=== PATIENT | female | born 1945 | race Caucasian/White ===

== ENCOUNTER 2019-05-14 11:59 | Emergency (ER) | payer OTHER ==
[2019-05-14 12:55] LABS: Absolute Lymphocytes (CBC) 1.5 K/uL (0.7-4.9); Basophils % 1.2 % (0-1.3); Hematocrit 39.3 % (36.0-45.0); Lymphocytes % 27.3 % (15.3-44.8); MPV 10.5 fL (7.6-11.3); RBC Red Blood Cell Count 4.41 M/uL (3.86-4.86)
[2019-05-14 12:56] LABS: Protime INR 0.93
[2019-05-14 13:09] LABS: ALT/SGPT 66 U/L (12-78); AST/SGOT 39 U/L (15-37); Albumin 3.7 g/dL (3.4-5.0); Alkaline Phosphatase 65 U/L (45-117); BUN Blood Urea Nitrogen 15 mg/dL (7-18); Bicarbonate 30 mmol/L (21-32); Bilirubin Direct 0.2 mg/dL (0-0.2); Bilirubin Total 0.7 mg/dL (0.2-1.0); Glucose Level 120 mg/dL (74-106); NT PRO-BNP 219 pg/mL (<125); Potassium 4.1 mmol/L (3.5-5.1); Protein, Total 6.7 g/dL (6.4-8.2); Sodium Level 141 mmol/L (136-145); Troponin (Emerg Dept Use Only) < 0.02 ng/mL (0.0-0.045)
[2019-05-14 13:48] LABS: Urine Blood NEGATIVE (NEG); Urine Glucose NEGATIVE (NEG); Urine Protein NEGATIVE (NEG)
--- NOTE | 2019-05-14 13:51 | RAD REPORT ---
EXAM DESCRIPTION: Elizabeth Single View05/14/2019 1:03 pm CLINICAL HISTORY: Chest pain COMPARISON: 2018 FINDINGS: The lungs appear clear of acute infiltrate. The heart is normal size IMPRESSION: No acute abnormalities displayed
--- NOTE | 2019-05-14 14:03 | ER ---
[facility] Name: Chrissy Johnson Age: 73 yrs Sex: Female : 1945 Arrival Date: 05/14/2019 Time: 12:01 Bed 17 Private MD: Hero Baxter C Diagnosis: Essential (primary) hypertension Presentation: 05/14 12:11 Presenting complaint: Patient states: "Last night during the night I woke up with a aj1 fluttering feeling in my chest and an uncomfortable feeling. It probably lasted 20 or 30 minutes. I took my blood pressure and it was 205/[id number]-[id number]. It came down over the night but never lower than 145." Denies CP, palpitations at this time.. Denies SOB. Transition of care: patient was not received from another setting of care. Onset of symptoms was 2018. Risk Assessment: Do you want to hurt yourself or someone else? Patient reports no desire to harm self or others. Initial Sepsis Screen: Does the patient meet any 2 criteria? No. Patient's initial sepsis screen is negative. Does the patient have a suspected source of infection? No. Patient's initial sepsis screen is negative. Care prior to arrival: None. 12:11 Method Of Arrival: Ambulatory aj1 12:11 Acuity: TAMI 3 aj1 Triage Assessment: 12:19 General: Appears in no apparent distress. comfortable, Behavior is calm, cooperative, aj1 appropriate for age. Pain: Denies pain. Neuro: Level of Consciousness is awake, alert, obeys commands. Cardiovascular: Reports palpitations, Patient's skin is warm and dry. Respiratory: Airway is patent Respiratory effort is even, unlabored, Respiratory pattern is regular, symmetrical. Historical: - Allergies: 12:19 Darvon; aj1 12:19 Atarax; aj1 12:19 Amoxicillin; aj1 12:19 novahistin; aj1 - Home Meds: 12:19 Crestor 10 mg oral tab 1 tab once daily [Active]; amlodipine-hydrochlorothiazide aj1 [Active]; levothyroxine 75 mcg tab 1 tab once daily [Active]; metformin 500 mg Oral Tb24 1 tab once daily [Active]; Benadryl Oral once daily [Active]; aspirin 81 mg Oral chew 1 tab once daily [Active]; Vitamin D Oral 400 unit daily [Active]; Fish Oil oral oral daily [Active]; Calcium Carbonate Oral daily [Active]; Thera Tears Nutrition [phone] ry-xe-ig-unit oral cap twice a day [Active]; biotin 5,000 mcg oral cap twice a day [Active]; CoQ-10 100 mg oral cap daily [Active]; sulfurzyme [Active]; - PMHx: 12:19 mortons neuroma; Hypertension; Diabetes - NIDDM; Hyperlipidemia; melanoma- removed x2; aj1 - PSHx: 12:19 Appendectomy; Tonsillectomy; shoulder repair; Thyroidectomy; Knee surgery; aj1 - Immunization history:: Flu vaccine is up to date. - Social history:: Smoking status: Patient/guardian denies using tobacco, Patient/guardian denies using alcohol, street drugs, The patient lives with family. - Ebola Screening: : Patient denies travel to an Ebola-affected area in the 21 days before illness onset. - Family history:: not pertinent. Screenin:19 Abuse screen: Denies threats or abuse. Denies injuries from another. Nutritional sg screening: No deficits noted. Tuberculosis screening: No symptoms or risk factors identified. Never had TB. Fall Risk None identified. Assessment: 12:18 General: Appears in no apparent distress. well groomed, well developed, well nourished, sg Behavior is calm, cooperative, appropriate for age. Pain: Denies pain. Neuro: Level of Consciousness is awake, alert, obeys commands, Oriented to person, place, time, Double Cut Off Saw Operator are equal bilaterally Moves all extremities. Full function Speech is normal, Facial symmetry appears normal, Pupils are PERRLA. Cardiovascular: Capillary refill < 3 seconds Patient's skin is warm and dry. Chest pain is denied. Cardiovascular: Heart tones S1 S2 present. Respiratory: Airway is patent Respiratory effort is even, unlabored, Respiratory pattern is regular, symmetrical. GI: Abdomen is round non-distended. : No signs and/or symptoms were reported regarding the genitourinary system. EENT: No signs and/or symptoms were reported regarding the EENT system. Derm: Skin is pink, warm \\T\\ dry. Musculoskeletal: Circulation, motion, and sensation intact. Range of motion: intact in all extremities. 13:19 Reassessment: Patient appears in no apparent distress at this time. Patient and/or sg family updated on plan of care and expected duration. Pain level reassessed. Patient is alert, oriented x 3, equal unlabored respirations, skin warm/dry/pink. Vital Signs: 12:19 BP 173 / 75; Pulse 69; Resp 18; Temp 98.1; Pulse Ox 97% on R/A; Weight 88.9 kg (R); aj1 Height 5 ft. 4 in. (162.56 cm) (R); Pain 0/10; 13:21 BP 142 / 70; Pulse 58; Resp 14; Pulse Ox 100% on R/A; sg 12:19 Body Mass Index 33.64 (88.90 kg, 162.56 cm) aj1 ED Course: 12:00 Initial lab(s) drawn, by me, sent to lab. Inserted saline lock: 22 gauge in right sg antecubital area, using aseptic technique. Blood collected. 12:01 Patient arrived in ED. mr 12:02 Hero Baxter MD is Private Physician. mr 12:13 Triage completed. aj1 12:19 Arm band placed on Patient placed in an exam room. aj1 12:20 Silvino Laws, RN is Primary Nurse. 12:24 Maliha Gutierrez MD is Attending Physician. ma2 12:30 Patient has correct armband on for positive identification. Placed in gown. Bed in low hb position. Call light in reach. Side rails up X 1. babysitter on. Pulse ox on. NIBP on. 13:04 XRAY Chest (1 view) In Process Unspecified. EDMS 14:11 No provider procedures requiring assistance completed. IV discontinued, intact, hb bleeding controlled, No redness/swelling at site. Pressure dressing applied. Administered Medications: No medications were administered Outcome: 14:02 Discharge ordered by . ma2 14:11 Discharged to home ambulatory, with family. hb 14:11 Condition: stable 14:11 Discharge instructions given to patient, family, Instructed on discharge instructions, follow up and referral plans. Demonstrated understanding of instructions, follow-up care. 14:11 Patient left the ED. hb Signatures: Dispatcher [employer] EDNV Jennifer Montana RN RN aj Silvino Laws RN RN Kimmy Mejia mr Rosa Weber RN RN Alzahri, Mohammad, MD MD ma2
--- NOTE | 2019-05-14 14:05 | EDPHYS ---
Physician Documentation [facility] Name: Chrissy Johnson Age: 73 yrs Sex: Female : 1945 Arrival Date: 05/14/2019 Time: 12:01 Bed 17 Private MD: Hero Baxter C ED Physician Maliha Gutierrez HPI: 05/14 14:00 This 73 yrs old Female presents to ER via Ambulatory with complaints of High ma2 Blood Pressure. 14:00 The patient has elevated blood pressure and discovered this at home. Onset: The ma2 symptoms/episode began/occurred gradually, 2 day(s) ago. Severity of symptoms: At its worst the blood pressure was mild, in the emergency department the blood pressure is now normal. The blood pressure problem is resolved. The patient has not experienced similar symptoms in the past. Historical: - Allergies: 12: Darvon; aj1 12:19 Atarax; aj1 12:19 Amoxicillin; aj1 12:19 novahistin; aj1 - Home Meds: 12: Crestor 10 mg oral tab 1 tab once daily [Active]; amlodipine-hydrochlorothiazide aj1 [Active]; levothyroxine 75 mcg tab 1 tab once daily [Active]; metformin 500 mg Oral Tb24 1 tab once daily [Active]; Benadryl Oral once daily [Active]; aspirin 81 mg Oral chew 1 tab once daily [Active]; Vitamin D Oral 400 unit daily [Active]; Fish Oil oral oral daily [Active]; Calcium Carbonate Oral daily [Active]; Thera Tears Nutrition [phone] id-os-zj-unit oral cap twice a day [Active]; biotin 5,000 mcg oral cap twice a day [Active]; CoQ-10 100 mg oral cap daily [Active]; sulfurzyme [Active]; - PMHx: 12:19 mortons neuroma; Hypertension; Diabetes - NIDDM; Hyperlipidemia; melanoma- removed x2; aj1 - PSHx: 12:19 Appendectomy; Tonsillectomy; shoulder repair; Thyroidectomy; Knee surgery; aj1 - Immunization history:: Flu vaccine is up to date. - Social history:: Smoking status: Patient/guardian denies using tobacco, Patient/guardian denies using alcohol, street drugs, The patient lives with family. - Ebola Screening: : Patient denies travel to an Ebola-affected area in the 21 days before illness onset. - Family history:: not pertinent. ROS: 14:00 Constitutional: Negative for fever, chills, and weight loss. ma2 14:00 All other systems are negative. Exam: 14:00 Constitutional: This is a well developed, well nourished patient who is awake, alert, ma2 and in no acute distress. Head/Face: Normocephalic, atraumatic. Eyes: Pupils equal round and reactive to light, extra-ocular motions intact. Lids and lashes normal. Conjunctiva and sclera are non-icteric and not injected. Cornea within normal limits. Periorbital areas with no swelling, redness, or edema. ENT: Nares patent. No nasal discharge, no septal abnormalities noted. Tympanic membranes are normal and external auditory canals are clear. Oropharynx with no redness, swelling, or masses, exudates, or evidence of obstruction, uvula midline. Mucous membranes moist. Neck: Trachea midline, no thyromegaly or masses palpated, and no cervical lymphadenopathy. Supple, full range of motion without nuchal rigidity, or vertebral point tenderness. No Meningismus. Chest/axilla: Normal chest wall appearance and motion. Nontender with no deformity. No lesions are appreciated. Cardiovascular: Regular rate and rhythm with a normal S1 and S2. No gallops, murmurs, or rubs. Normal PMI, no JVD. No pulse deficits. Respiratory: Lungs have equal breath sounds bilaterally, clear to auscultation and percussion. No rales, rhonchi or wheezes noted. No increased work of breathing, no retractions or nasal flaring. Abdomen/GI: Soft, non-tender, with normal bowel sounds. No distension or tympany. No guarding or rebound. No evidence of tenderness throughout. Skin: Warm, dry with normal turgor. Normal color with no rashes, no lesions, and no evidence of cellulitis. MS/ Extremity: Pulses equal, no cyanosis. Neurovascular intact. Full, normal range of motion. Neuro: Awake and alert, GCS 15, oriented to person, place, time, and situation. Cranial nerves II-XII grossly intact. Motor strength 5/5 in all extremities. Sensory grossly intact. Cerebellar exam normal. Normal gait. Vital Signs: 12:19 BP 173 / 75; Pulse 69; Resp 18; Temp 98.1; Pulse Ox 97% on R/A; Weight 88.9 kg (R); aj1 Height 5 ft. 4 in. (162.56 cm) (R); Pain 0/10; 13:21 BP 142 / 70; Pulse 58; Resp 14; Pulse Ox 100% on R/A; sg 12:19 Body Mass Index 33.64 (88.90 kg, 162.56 cm) aj1 MDM: 12:24 Patient medically screened. ma2 14:00 Differential diagnosis: asymptomatic HTN, no chest pain, no acs, dd includes ma2 electrolytes abnormality vs headache. Data reviewed: vital signs, nurses notes. Counseling: I had a detailed discussion with the patient and/or guardian regarding: the historical points, exam findings, and any diagnostic results supporting the discharge/admit diagnosis, the presence of at least one elevated blood pressure reading (>120/80) during this emergency department visit, the need for outpatient follow up. Response to treatment: the patient's symptoms have resolved after treatment. 05/14 12:25 Order name: Basic Metabolic Panel [facility] 05/14 12:25 Order name: CBC with Diff; Complete Time: 13:50 ma2 05/14 12:25 Order name: LFT's; Complete Time: 13:50 ma2 05/14 12:25 Order name: Magnesium; Complete Time: 13:50 ma2 05/14 12:25 Order name: NT PRO-BNP; Complete Time: 13:50 ma2 05/14 12:25 Order name: PT-INR; Complete Time: 13:50 ma2 05/14 12:25 Order name: Troponin (emerg Dept Use Only); Complete Time: 13:50 ma2 05/14 12:25 Order name: XRAY Chest (1 view) [facility] 05/14 12:25 Order name: EKG; Complete Time: 12:26 ma2 05/14 12:25 Order name: Cardiac monitoring; Complete Time: 12:41 ma2 05/14 12:25 Order name: EKG - Nurse/Tech; Complete Time: 12:41 ma2 05/14 12:25 Order name: IV Saline Lock; Complete Time: 12:42 ma2 05/14 12:25 Order name: Basic Metabolic Panel; Complete Time: 13:50 EDMS 05/14 12:53 Order name: Urine Dipstick--Ancillary (enter results); Complete Time: 13:50 eb 05/14 12:25 Order name: Labs collected and sent; Complete Time: 12:42 ma2 05/14 12:25 Order name: O2 Per Protocol; Complete Time: 12:41 ma2 05/14 12:25 Order name: O2 Sat Monitoring; Complete Time: 12:41 ma2 Administered Medications: No medications were administered Disposition: 05/14/19 14:02 Discharged to Home. Impression: Essential (primary) hypertension. - Condition is Stable. - Discharge Instructions: Hypertension, Managing Your Hypertension. - Medication Reconciliation Form, Thank You Letter, Antibiotic Education, Prescription Opioid Use form. - Follow up: Private Physician; When: Tomorrow; Reason: Continuance of care. Signatures: Dispatcher [employer] Jennifer Suresh RN RN aj1 Rosa Weber RN RN Maliha Gutierrez MD MD ma2 Corrections: (The following items were deleted from the chart) 14:11 14:02 05/14/2019 14:02 Discharged to Home. Impression: Essential (primary) hb hypertension. Condition is Stable. Forms are Medication Reconciliation Form, Thank You Letter, Antibiotic Education, Prescription Opioid Use. Follow up: Private Physician; When: Tomorrow; Reason: Continuance of care. ma2
--- NOTE | 2019-05-14 15:31 | EKG ---
Test Date: 2019-05-14 Test Time: 12:34:48 Mold Maker Plaster: SWG MEASUREMENT RESULTS: Intervals: Rate: 57 OH: 144 QRSD: 120 QT: 450 QTc: 438 [place]: P: 19 OH: 144 QRS: -3 T: 3 INTERPRETIVE STATEMENTS: Sinus bradycardia Right bundle branch block Abnormal ECG Compared to ECG 07/23/2010 13:37:18 Sinus rhythm no longer present Electronically Signed On 05-14-19 15:30:35 MATERIAL DISPATCHER by Sherwin Jimenez
[2019-05-14 18:21] VITALS: TEMP 98.1
[2019-05-14 18:22] VITALS: BP 142/70; O2SAT 100
== END 2019-05-14 14:11 | disposition home or self-care (01) ==
LOC: ER 11:59
DX: I10 Essential (primary) hypertension (principal); Z88.1 Allergy status to other antibiotic agents; Z88.8 Allergy status to other drugs, medicaments and biological substances; E11.9 Type 2 diabetes mellitus without complications; E78.5 Hyperlipidemia, unspecified
CPT/HCPCS: 36415; 71045; 80048; 80076; 81003; 83735; 83880; 84484; 85025; 85610; 93005; 99284

== ENCOUNTER 2021-03-07 13:19 | Emergency (ER) | payer OTHER ==
[2021-03-07 14:06] LABS: Urine Blood Negative (Negative); Urine Glucose Negative (Negative); Urine Protein Negative (Negative); Urine pH 5.5 (5.0-7.0)
[2021-03-07 14:17] LABS: Absolute Lymphocytes (CBC) 1.8 K/uL (0.7-4.9); Basophils % 1.2 % (0-1.3); Hematocrit 41.4 % (36.0-45.0); MPV 9.2 fL (7.6-11.3)
[2021-03-07] MEDS ORDERED: NA CHLORIDE 0.9% 1,000 ML ONE (14:20)
[2021-03-07 14:25] LABS: Protime INR 0.97
[2021-03-07 14:35] LABS: ALT/SGPT 57 U/L (12-78); AST/SGOT 46 U/L (15-37); Albumin 4.4 g/dL (3.4-5.0); Alkaline Phosphatase 68 U/L (45-117); BUN Blood Urea Nitrogen 25 mg/dL (7-18); Bicarbonate 31 mmol/L (21-32); Bilirubin Direct 0.3 mg/dL (0-0.2); Bilirubin Total 1.2 mg/dL (0.2-1.0); Glucose Level 121 mg/dL (74-106); NT PRO-BNP 104 pg/mL (<125); Potassium 3.7 mmol/L (3.5-5.1); Protein, Total 8.1 g/dL (6.4-8.2); Sodium Level 141 mmol/L (136-145); Troponin (Emerg Dept Use Only) < 0.02 ng/mL (0.0-0.045)
--- NOTE | 2021-03-07 15:03 | RAD REPORT ---
EXAM DESCRIPTION: RAD - Chest Single View - 03/07/2021 2:36 pm CLINICAL HISTORY: Cough;Palpitations Chest pain. COMPARISON: Chest Single View dated 05/14/2019; Chest Pa And Lat (2 Views) dated 06/03/2017; CHEST SI NGLE VIEW dated 07/23/2010; CHEST SINGLE VIEW dated 07/22/2010 FINDINGS: Portable technique limits examination quality. The lungs are grossly clear. The heart is upper limit of normal in size. No displaced fractures.
--- NOTE | 2021-03-07 15:48 | ER ---
Nurse's Notes [facility] Name: Chrissy Johnson Age: 75 yrs Sex: Female : 1945 Arrival Date: 03/07/2021 Time: 13:22 Bed 23 Private MD: Hero Baxter C Diagnosis: Palpitations;Essential (primary) hypertension;UTI/ Urinary tract infection, site not specified;Atrial premature depolarization Presentation: 03/07 13:35 Chief complaint: Patient states: she has been feeling "flutters" in her chest for about ap3 a year off and on. However, patient states today it has happened twice, with light headed and dizziness. Coronavirus screen: At this time, the client does not indicate any symptoms associated with coronavirus-19. Ebola Screen: No symptoms or risks identified at this time. Initial Sepsis Screen: Does the patient meet any 2 criteria? No. Patient's initial sepsis screen is negative. Does the patient have a suspected source of infection? No. Patient's initial sepsis screen is negative. Risk Assessment: Do you want to hurt yourself or someone else? Patient reports no desire to harm self or others. Onset of symptoms was March 07, 2021. 13:35 Method Of Arrival: Ambulatory ap3 13:35 Acuity: TAMI 3 ap3 Triage Assessment: 13:41 General: Appears in no apparent distress. comfortable, Behavior is calm, cooperative, ap3 appropriate for age. Pain: Denies pain. Neuro: Level of Consciousness is awake, alert, obeys commands. 13:41 Cardiovascular: Reports palpitations, dizziness when she feels the heart flutters. ap3 Historical: - Allergies: 14:12 Amoxicillin; ld1 14:12 Atarax; ld1 14:12 Darvon; ld1 14:12 novahistin; ld1 - Home Meds: 14:12 amlodipine-hydrochlorothiazide [Active]; valsartan-hydrochlorothiazide 320-25 mg oral ld1 tab 1 tab once daily [Active]; Crestor 10 mg oral tab 1 tab once daily [Active]; levothyroxine 75 mcg tab 1 tab once daily [Active]; metformin 500 mg Oral Tb24 1 tab once daily [Active]; Benadryl Oral once daily [Active]; loratadine 10 mg oral cap [Active]; Vitamin D Oral 400 unit daily [Active]; Thera Tears Nutrition [phone] el-ej-ln-unit Oral cap twice a day [Active]; Restasis 0.05 % ophthalmic (eye) dpet 1 drop every 12 hours [Active]; Glucosamine 500 mg oral tab [Active]; magnesium oxide 500 mg Oral tab [Active]; - PMHx: 14:12 Diabetes - NIDDM; Hyperlipidemia; Hypertension; melanoma- removed x2; mortons neuroma; ld1 - PSHx: 14:12 Appendectomy; Tonsillectomy; ld1 - Immunization history:: Client reports receiving the 2nd dose of the Covid vaccine, Date received: June 2020. - Social history:: Smoking status: Patient denies any tobacco usage or history of. - Family history:: not pertinent. Screenin:12 Abuse screen: Denies threats or abuse. Denies injuries from another. Nutritional ld1 screening: No deficits noted. Tuberculosis screening: No symptoms or risk factors identified. Fall Risk None identified. Assessment: 14:05 General: Appears in no apparent distress. comfortable, Behavior is calm, cooperative, ld1 appropriate for age. Pain: Denies pain. Neuro: Level of Consciousness is awake, alert, obeys commands, Oriented to person, place, time, situation. Cardiovascular: Reports palpitations, Denies chest pain, Capillary refill < 3 seconds Patient's skin is warm and dry. Rhythm is sinus rhythm. Respiratory: Airway is patent Respiratory effort is even, unlabored, Respiratory pattern is regular, symmetrical. GI: Abdomen is flat, non-distended. : No signs and/or symptoms were reported regarding the genitourinary system. EENT: No signs and/or symptoms were reported regarding the EENT system. Derm: No signs and/or symptoms reported regarding the dermatologic system. Musculoskeletal: No signs and/or symptoms reported regarding the musculoskeletal system. 15:42 Reassessment: Patient appears in no apparent distress at this time. No changes from ld1 previously documented assessment. Patient and/or family updated on plan of care and expected duration. Pain level reassessed. Patient is alert, oriented x 3, equal unlabored respirations, skin warm/dry/pink. Vital Signs: 13:35 BP 148 / 63 RA Sitting; Pulse 88; Resp 18; Temp 98.1; Pulse Ox 97% on R/A; Weight 86.64 ap3 kg; Height 5 ft. 4 in. (162.56 cm); 14:12 BP 120 / 62; Pulse 89; Resp 18; Pulse Ox 96% on R/A; Pain 0/10; ld1 15:42 BP 125 / 72; Pulse 78; Resp 18; Pulse Ox 98% on R/A; ld1 13:35 Body Mass Index 32.78 (86.64 kg, 162.56 cm) ap3 ED Course: 13:22 Patient arrived in ED. mr 13:22 Hero Baxter MD is Private Physician. mr 13:37 Triage completed. ap3 13:45 Jeyson Bonilla MD is Attending Physician. saji 13:47 Hayley Neville, SAAD is Primary Nurse. ld1 14:12 Patient has correct armband on for positive identification. Placed in gown. Bed in low ld1 position. Call light in reach. Side rails up X2. quality assurance monitor body on. Pulse ox on. NIBP on. Door closed. Noise minimized. Warm blanket given. 14:12 No provider procedures requiring assistance completed. Inserted saline lock: 20 gauge ld1 in right antecubital area, using aseptic technique. Blood collected. 14:36 XRAY Chest (1 view) In Process Unspecified. EDMS 15:45 Hero Baxter MD is Referral Physician. [facility] 15:46 Sherwin Jimenez MD is Referral Physician. saji 16:31 Arm band placed on right wrist. ld1 16:31 IV discontinued, intact, bleeding controlled, No redness/swelling at site. ld1 Administered Medications: 14:05 Drug: NS 0.9% 1000 ml Route: IV; Rate: 125 ml/hr; Site: right antecubital; ld1 15:55 Drug: Rocephin (cefTRIAXone) 1 grams Route: IV; Rate: per protocol; Site: right ld1 antecubital; 15:55 Follow up: Response: No adverse reaction; IV Status: Completed infusion ld1 15:55 Drug: ToPROL XL (metoprolol SUCCINATE) 25 mg Route: PO; ld1 15:55 Follow up: Response: No adverse reaction ld1 15:55 Drug: Aspirin 81 mg Route: PO; ld1 15:55 Follow up: Response: No adverse reaction ld1 Outcome: 15:47 Discharge ordered by . saji 16:31 Discharged to home ambulatory, with family. ld1 16:31 Condition: stable 16:31 Discharge instructions given to patient, family, Instructed on discharge instructions, follow up and referral plans. medication usage, Demonstrated understanding of instructions, follow-up care, medications, Prescriptions given X 2. 16:31 Patient left the ED. ld1 Signatures: Dispatcher [employer] EDMS Jeyson Bonilla MD MD cha Rivera, Mary mr Jyoti Diamond RN RN ap3 Hayley Neville RN RN ld1
--- NOTE | 2021-03-07 15:48 | EDPHYS ---
Physician Documentation [facility] Name: Chrissy Johnson Age: 75 yrs Sex: Female : 1945 Arrival Date: 03/07/2021 Time: 13:22 Bed 23 Private MD: Hero Baxter C ED Physician Jeyson Bonilla HPI: 03/07 15:40 This 75 yrs old Female presents to ER via Ambulatory with complaints of saji Palpitations. 15:40 This 75 yrs old Female presents to ER via Ambulatory with complaints of saji Palpitations. 15:40 The patient presents with a history of irregular heart beat. Context: The symptoms saji occur with light activity. Onset: The symptoms/episode began/occurred 2 day(s) ago. Duration: The patient or guardian reports multiple episodes, with no pattern. Modifying factors: The symptoms are aggravated by anxiety, The symptoms are alleviated by nothing. Associated signs and symptoms: The patient has no apparent associated signs or symptoms. Severity of symptoms: At their worst the symptoms were mild in the emergency department the symptoms are unchanged. The patient has not experienced similar symptoms in the past. Historical: - Allergies: 14:12 Amoxicillin; ld1 14:12 Atarax; ld1 14:12 Darvon; ld1 14:12 novahistin; ld1 - Home Meds: 14:12 amlodipine-hydrochlorothiazide [Active]; valsartan-hydrochlorothiazide 320-25 mg oral ld1 tab 1 tab once daily [Active]; Crestor 10 mg oral tab 1 tab once daily [Active]; levothyroxine 75 mcg tab 1 tab once daily [Active]; metformin 500 mg Oral Tb24 1 tab once daily [Active]; Benadryl Oral once daily [Active]; loratadine 10 mg oral cap [Active]; Vitamin D Oral 400 unit daily [Active]; [employer] [phone] vg-ko-[id number]-unit Oral cap twice a day [Active]; Restasis 0.05 % ophthalmic (eye) dpet 1 drop every 12 hours [Active]; Glucosamine 500 mg oral tab [Active]; magnesium oxide 500 mg Oral tab [Active]; - PMHx: 14:12 Diabetes - NIDDM; Hyperlipidemia; Hypertension; melanoma- removed x2; mortons neuroma; ld1 - PSHx: 14:12 Appendectomy; Tonsillectomy; ld1 - Immunization history:: Client reports receiving the 2nd dose of the Covid vaccine, Date received: June 2020. - Social history:: Smoking status: Patient denies any tobacco usage or history of. - Family history:: not pertinent. ROS: 15:40 Constitutional: Negative for fever, chills, and weight loss, Eyes: Negative for injury, saji pain, redness, and discharge, ENT: Negative for injury, pain, and discharge, Neck: Negative for injury, pain, and swelling, Cardiovascular: Negative for chest pain, palpitations, and edema, Respiratory: Negative for shortness of breath, cough, wheezing, and pleuritic chest pain, Abdomen/GI: Negative for abdominal pain, nausea, vomiting, diarrhea, and constipation, Back: Negative for injury and pain, : Negative for injury, bleeding, discharge, and swelling, MS/Extremity: Negative for injury and deformity, Skin: Negative for injury, rash, and discoloration, Neuro: Negative for headache, weakness, numbness, tingling, and seizure, Psych: Negative for depression, anxiety, suicide ideation, homicidal ideation, and hallucinations, Allergy/Immunology: Negative for hives, rash, and allergies, Endocrine: Negative for neck swelling, polydipsia, polyuria, polyphagia, and marked weight changes, Hematologic/Lymphatic: Negative for swollen nodes, abnormal bleeding, and unusual bruising. 15:40 MS/extremity: Negative for decreased range of motion, pain. Exam: 15:40 Constitutional: This is a well developed, well nourished patient who is awake, alert, saji and in no acute distress. Head/Face: Normocephalic, atraumatic. Eyes: Pupils equal round and reactive to light, extra-ocular motions intact. Lids and lashes normal. Conjunctiva and sclera are non-icteric and not injected. Cornea within normal limits. Periorbital areas with no swelling, redness, or edema. ENT: Nares patent. No nasal discharge, no septal abnormalities noted. Tympanic membranes are normal and external auditory canals are clear. Oropharynx with no redness, swelling, or masses, exudates, or evidence of obstruction, uvula midline. Mucous membranes moist. Neck: Trachea midline, no thyromegaly or masses palpated, and no cervical lymphadenopathy. Supple, full range of motion without nuchal rigidity, or vertebral point tenderness. No Meningismus. Chest/axilla: Normal chest wall appearance and motion. Nontender with no deformity. No lesions are appreciated. Cardiovascular: Regular rate and rhythm with a normal S1 and S2. No gallops, murmurs, or rubs. Normal PMI, no JVD. No pulse deficits. Respiratory: Lungs have equal breath sounds bilaterally, clear to auscultation and percussion. No rales, rhonchi or wheezes noted. No increased work of breathing, no retractions or nasal flaring. Abdomen/GI: Soft, non-tender, with normal bowel sounds. No distension or tympany. No guarding or rebound. No evidence of tenderness throughout. Back: No spinal tenderness. No costovertebral tenderness. Full range of motion. Skin: Warm, dry with normal turgor. Normal color with no rashes, no lesions, and no evidence of cellulitis. MS/ Extremity: Pulses equal, no cyanosis. Neurovascular intact. Full, normal range of motion. Neuro: Awake and alert, GCS 15, oriented to person, place, time, and situation. Cranial nerves II-XII grossly intact. Motor strength 5/5 in all extremities. Sensory grossly intact. Cerebellar exam normal. Normal gait. Psych: Awake, alert, with orientation to person, place and time. Behavior, mood, and affect are within normal limits. 15:40 Musculoskeletal/extremity: ROM: intact in all extremities, full active range of motion, full passive range of motion, Circulation is intact in all extremities. Sensation intact. Compartment Syndrome exam of affected extremity: is normal. Joints: All joints appear normal with full range of motion. Weight bearing: able to fully bear weight, without difficulty, Tendon exam: specific tendon testing normal through active and passive range of motion DVT Exam: No signs of deep vein thrombosis. no pain, no swelling, no tenderness, negative Homans' sign noted on exam, no appreciated bluish discoloration, no erythema, no increased warmth. 15:40 Neuro: Orientation: is normal, appropriate for stated age, no acute changes, Mentation: is normal, appropriate for stated age, no acute changes, Memory: is normal, appropriate for stated age, no acute changes, Cranial nerves: grossly normal, is grossly normal based on the patient's age, no acute changes, Cerebellar function: is grossly normal, is grossly normal based on the patient's age, no acute changes, Motor: is normal, Sensation: is normal, no obvious gross deficits, appropriate no acute changes, Gait: is steady, Deep tendon reflexes are 2+ (normal) in the bilateral brachioradialis, bicep, tricep and patellar and Achilles tendons, Babinski testing is normal. 15:51 ECG was reviewed by the Attending Physician. [facility] Vital Signs: 13:35 BP 148 / 63 RA Sitting; Pulse 88; Resp 18; Temp 98.1; Pulse Ox 97% on R/A; Weight 86.64 ap3 kg; Height 5 ft. 4 in. (162.56 cm); 14:12 BP 120 / 62; Pulse 89; Resp 18; Pulse Ox 96% on R/A; Pain 0/10; ld1 15:42 BP 125 / 72; Pulse 78; Resp 18; Pulse Ox 98% on R/A; ld1 13:35 Body Mass Index 32.78 (86.64 kg, 162.56 cm) ap3 MDM: 13:45 Patient medically screened. saji 15:44 VEE Risk Score: 1 - 3 or more CAD risk factors, [Family HX] [HTN] [DM] Total Score = saji 1. Differential diagnosis: arrythmia, dehydration. Data reviewed: vital signs, nurses notes, lab test result(s), EKG, radiologic studies, plain films. Data interpreted: monitoring specialist: rate is 78 beats/min, rhythm is regular, Pulse oximetry: on room air is 98 %. Test interpretation: by ED physician or midlevel provider: ECG, plain radiologic studies. Counseling: I had a detailed discussion with the patient and/or guardian regarding: the historical points, exam findings, and any diagnostic results supporting the discharge/admit diagnosis, lab results, radiology results, the need for outpatient follow up, for definitive care, a marketing lead, an account executive software sales. 03/07 13:46 Order name: Basic Metabolic Panel; Complete Time: 15:13 [facility] 03/07 13:46 Order name: CBC with Diff; Complete Time: 15:13 [facility] 03/07 13:46 Order name: LFT's; Complete Time: 15:13 [facility] 03/07 13:46 Order name: Magnesium; Complete Time: 15:13 [facility] 03/07 13:46 Order name: NT PRO-BNP; Complete Time: 15:13 [facility] 03/07 13:46 Order name: PT-INR; Complete Time: 15:13 [facility] 03/07 13:46 Order name: Troponin (emerg Dept Use Only); Complete Time: 15:13 [facility] 03/07 13:46 Order name: XRAY Chest (1 view); Complete Time: 15:13 [facility] 03/07 13:46 Order name: TSH; Complete Time: 15:13 [facility] 03/07 14:06 Order name: Urine Dipstick-Ancillary; Complete Time: 15:13 EDMS 03/07 15:14 Order name: Urine Culture 03/07 13:46 Order name: EKG; Complete Time: 13:47 [facility] 03/07 13:46 Order name: Cardiac monitoring; Complete Time: 14:05 [facility] 03/07 13:46 Order name: EKG - Nurse/Tech; Complete Time: 14:05 [facility] 03/07 13:46 Order name: IV Saline Lock; Complete Time: 14:05 [facility] 03/07 13:46 Order name: Labs collected and sent; Complete Time: 14:05 [facility] 03/07 13:46 Order name: O2 Per Protocol; Complete Time: 13:54 [facility] 03/07 13:46 Order name: O2 Sat Monitoring; Complete Time: 13:54 [facility] 03/07 13:46 Order name: Urine Dipstick-Ancillary (obtain specimen); Complete Time: 14:05 [facility] EC:51 Rate is 91 beats/min. Rhythm is regular. QRS [place] is Normal. MS interval is normal. QRS saji interval is prolonged. QT interval is normal. No Q waves. T waves are Normal. No ST changes noted. Clinical impression: NSR w/ Non-specific ST/T Changes and No evidence of ischemia. Interpreted by me. Reviewed by me. Administered Medications: 14:05 Drug: NS 0.9% 1000 ml Route: IV; Rate: 125 ml/hr; Site: right antecubital; ld1 15:55 Drug: Rocephin (cefTRIAXone) 1 grams Route: IV; Rate: per protocol; Site: right ld1 antecubital; 15:55 Follow up: Response: No adverse reaction; IV Status: Completed infusion ld1 15:55 Drug: ToPROL XL (metoprolol SUCCINATE) 25 mg Route: PO; ld1 15:55 Follow up: Response: No adverse reaction ld1 15:55 Drug: Aspirin 81 mg Route: PO; ld1 15:55 Follow up: Response: No adverse reaction ld1 Disposition Summary: 03/07/21 15:47 Discharge Ordered Location: Home saji Problem: new saji Symptoms: have improved saji Condition: Stable saji Diagnosis - Palpitations saji - Essential (primary) hypertension saji - UTI/ Urinary tract infection, site not specified saji - Atrial premature depolarization saji Followup: saji - With: Hero Baxter MD - When: 2 - 3 days - Reason: Recheck today's complaints, Re-evaluation by your physician Followup: saji - With: Sherwin Jimenez MD - When: 2 - 3 days - Reason: Recheck today's complaints, Re-evaluation by your physician Discharge Instructions: - Discharge Summary Sheet saji - Hypertension, Adult saji - Palpitations saji - Urinary Tract Infection, Adult saji - Urinary Tract Infection, Adult, [id number] saji - Hypertension, Adult, Zqbi-[id number] saji - How to Take Your Blood Pressure, Mxbr-tu-[id number] saji - Aspirin and Your Heart saji - Palpitations, Ozlj-hj-[id number] saji - Managing Your Hypertension saji Forms: - Medication Reconciliation Form saji - Thank You Letter saji - Antibiotic Education saji - Prescription Opioid Use saji Prescriptions: - Toprol XL 25 mg Oral Tablet - take 1 tablet by ORAL route once daily; 20 tablet; Refills: 0, Product saji Selection Permitted - Cipro 250 mg Oral Tablet - take 1 tablet by ORAL route every 12 hours; 14 tablet; Refills: 0, Product saji Selection Permitted Signatures: Dispatcher [employer] Jeyson Funk MD MD cha Prokisch, Amanda, RN RN ap3 Hayley Neville RN RN ld1
[2021-03-07] MEDS ORDERED: ASPIRIN 81 MG CHEWABLE TABLET ONE (16:12)
[2021-03-07] MEDS ORDERED: METOPROLOL TAR 25 MG TAB ONE (16:12)
[2021-03-07] MEDS ORDERED: CEFTRIAXONE 1000 MG/VIAL ONE (16:13)
[2021-03-07 16:53] VITALS: TEMP 98.1
[2021-03-07 16:55] VITALS: BP 125/72; O2SAT 98
--- NOTE | 2021-03-09 11:48 | EKG ---
Test Date: 2021-03-07 Test Time: 13:59:45 Physiotherapy Aide: LUPE MEASUREMENT RESULTS: Intervals: Rate: 91 IN: 146 QRSD: 114 QT: 386 QTc: 474 [place]: P: 52 IN: 146 QRS: 17 T: 6 INTERPRETIVE STATEMENTS: Sinus rhythm with premature atrial complexes Incomplete right bundle branch block ST & T wave abnormality, consider anterior ischemia Abnormal ECG Compared to ECG 05/14/2019 12:34:48 Atrial premature complex(es) now present Incomplete right bundle-branch block now present ST (T wave) deviation now present Possible ischemia now present Sinus bradycardia no longer present Right bundle-branch block no longer present Electronically Signed On 03-09-21 11:44:58 CDT by Sherwin Jimenez
== END 2021-03-07 16:31 | disposition home or self-care (01) ==
LOC: ER 13:19
DX: R00.2 Palpitations (principal); I49.1 Atrial premature depolarization; N39.0 Urinary tract infection, site not specified; I10 Essential (primary) hypertension; E11.9 Type 2 diabetes mellitus without complications; Z88.1 Allergy status to other antibiotic agents; Z88.8 Allergy status to other drugs, medicaments and biological substances
CPT/HCPCS: 93005; 87088; 85025; 87086; 80048; 36415; 83735; 85610; 80076; 84443; 81003; 84484; 83880; 71045; 96374; 99284; J7030

== ENCOUNTER 2021-08-18 16:28 | Emergency (ER) | payer OTHER ==
--- OUTSIDE RECORDS SUMMARY | 2021-08-18 16:33 | XMS REPORT | Continuity of Care Document ---
:1945 Author Organization [facility] t Address [address] [place] [address] Care Team Providers Name Role Phone Cris Baxter Primary Care Physician Dio W Attending Clinician Unavailable Alice NASH, T Attending Clinician Unavailable Only, Db Test Attending Clinician Unavailable Chanel SENIOR SYSTEMS PROGRAMMER Attending Clinician CHANEL Attending Clinician Unavailable Anisha PEARL Attending Clinician Unavailable Provider, Urgent Care Attending Clinician Unavailable Alexa SENIOR SYSTEMS PROGRAMMER Attending Clinician ALEXA Attending Clinician Unavailable Dio, W Admitting Clinician Unavailable UNDEFINED Admitting Clinician Unavailable Payers Payer Name Policy Type Policy Number Effective Date Expiration Date S ource Problems Condition Condition Condition Status Onset Resolution Last Treating Co mments Source Name Details Category Date Date Treatment Clinician Date No known No known Disease Unive rs active active ity of problems problems [facility] Allergies, Adverse Reactions, Alerts Allergy Allergy Status Severity Reaction(s) Onset Inactive Treating Comm ents Source Name Type Date Date Clinician dihydroc DA Active [place] "WEEL" [facility] odeine 5-17 Clear 00:00: [facility] 00 [facility] propoxyp DA Active [facility] VOMITING [facility] hene 5-17 Clear 00:00: [facility] phenylep DA Active [place] "WEEL" [facility] hrine 5-17 Clear 00:00: [facility] pseudoep DA Active [place] "WEEL" [facility] hedrine 5-17 Clear 00:00: [facility] amoxicil DA Active [place] RASH 2020-0 [facility] bo 5-17 Clear 00:00: [place] 00 [facility] chlorphe DA Active MO "WEEL" 2020-0 [facility] niramine 5-17 Clear 00:00: [place] 00 [facility] hydroxyz DA Active MN 2020-0 [facility] ine 5-17 Clear 00:00: [facility] 00 [facility] codeine DA Active MO 2020-0 [facility] 5-17 Clear 00:00: [facility] 00 [facility] dihydroc DA Active MO 2020-0 [facility] odeine 5-17 Clear 00:00: [place] 00 [facility] propoxyp DA Active MO 2020-0 [facility] hene 5-17 Clear 00:00: [place] 00 [facility] phenylep DA Active MO 2020-0 [facility] hrine 5-17 Clear 00:00: [place] 00 [facility] pseudoep DA Active MO 2020-0 [facility] hedrine 5-17 Clear 00:00: [place] 00 [facility] amoxicil DA Active MN 2020-0 [facility] bo 5-17 Clear 00:00: [place] 00 [facility] chlorphe DA Active MO 2020-0 [facility] niramine 5-17 Clear 00:00: [place] 00 [facility] hydroxyz DA Active [place] ITCHING 2020-0 [facility] ine 5-17 Clear 00:00: [place] 00 [facility] codeine DA Active MO "WEEL" 2020-0 [facility] 5-17 Clear 00:00: [place] 00 [facility] Amoxicil Propensi Active Rash 2017-05 Univer s bo ty to 06-20 ity of adverse 00:00: [place] reaction 00 [facility] Hydroxyz Propensi Active Itching 2017-05 Unive rs ine Hcl ty to 06-20 ity of adverse 00:00: [place] reaction 00 [facility] s [facility] Propoxyp Propensi Active Nausea 2017-05 Univer s hene ty to and/or 06-20 ity of adverse Vomiting 00:00: [place] reaction [facility] Pseudoep Propensi Active Rash 2017-05 [facility] hedrine- ty to 06-20 ity of Dm-Guaif adverse 00:00: [place] enesin reaction [facility] HYDROXYZ DRUG Active ITCHING 2017-05 Univers INE HCL INGREDI 06-20 ity of 00:00: [place] 00 [facility] PROPOXYP DRUG Active N/V 2017-05 Univers HENE INGREDI 06-20 ity of 00:00: [place] 00 [facility] AMOXICIL DRUG Active Low Rash 2017-05 Univers BO INGREDI 06-20 ity of 00:00: [place] 00 [facility] PSEUDOEP DRUG Active Low Rash 2017-05 Univers HEDRINE- 06-20 ity of DM-GUAIF 00:00: [place] ENESIN 00 [facility] NO KNOWN Drug Active Univers ALLERGIE Class ity of S [facility] Social History Social Habit Start Date Stop Date Quantity Comments Source Exposure to Not sure [facility] SARS-CoV-2 (event) [facility] Tobacco use and 2020-04-28 2020-04-28 Never used [facility] exposure 00:00:00 00:00:00 [facility] Sex [birth year] [facility] 00:00:00 00:00:00 [facility] Smoking Status Start Date Stop Date Source Never smoker [facility] Medications Ordered Filled Start Stop Current Ordering Indication Dosage Frequency Signature Comments Components Source Medication Medication Date Date Medication? Clinician (SIG) Name Name No known No Univers medications [facility] No known No Univers medications [facility] No known No Univers medications [facility] No known No Univers medications [facility] Immunizations Ordered Filled Immunization Date Status Comments Sourc e Immunization Name Name SARS-COV-2 COVID-19 2020-07-26 Completed Unive rsity of PFIZER VACCINE 00:00:00 [facility] SARS-COV-2 COVID-19 2020-07-26 Completed Unive rsity of PFIZER VACCINE 00:00:00 [facility] SARS-COV-2 COVID-19 2020-07-26 Completed Unive rsity of PFIZER VACCINE 00:00:00 [facility] SARS-COV-2 COVID-19 2020-07-05 Completed Unive rsity of PFIZER VACCINE 00:00:00 [facility] SARS-COV-2 COVID-19 2020-07-05 Completed Unive rsity of PFIZER VACCINE 00:00:00 [facility] SARS-COV-2 COVID-19 2020-07-05 Completed Unive rsity of PFIZER VACCINE 00:00:00 [facility] Vital Signs Vital Name Observation Time Observation Value Comments Source Systolic blood 2020-04-28 16:52:00 142 mm[Hg] Univer sity of pressure [facility] Diastolic blood 2020-04-28 16:52:00 82 mm[Hg] Unive rsity of pressure [facility] Heart rate 2020-04-28 16:50:00 64 /min Universi ty of [facility] Body temperature 2020-04-28 16:50:00 36.78 Domitila Univ ersity of [facility] Respiratory rate 2020-04-28 16:50:00 18 /min Univ ersity of [facility] Body height 2020-04-28 16:50:00 163.8 cm Universi ty of [facility] Body weight 2020-04-28 16:50:00 86.183 kg [facility] BMI 2020-04-28 16:50:00 32.11 kg/m2 Universi ty of [facility] Oxygen saturation in 2020-04-28 16:50:00 97 /min University of Arterial blood by [facility] Pulse oximetry Branch Systolic blood 2020-04-28 16:52:00 142 mm[Hg] Univer sity of pressure [facility] Diastolic blood 2020-04-28 16:52:00 82 mm[Hg] Unive rsity of pressure [facility] Heart rate 2020-04-28 16:50:00 64 /min Universi ty of [facility] Body temperature 2020-04-28 16:50:00 36.78 Domitila Univ ersity of [facility] Respiratory rate 2020-04-28 16:50:00 18 /min Univ ersity of [facility] Body height 2020-04-28 16:50:00 163.8 cm [facility] Body weight 2020-04-28 16:50:00 86.183 kg [facility] BMI 2020-04-28 16:50:00 32.11 kg/m2 Universi ty of [facility] Oxygen saturation in 2020-04-28 16:50:00 97 /min University of Arterial blood by [facility] Pulse oximetry Branch Procedures Procedure Date / Time Performed Performing Clinician Damien johnston [id number] 2020-10-15 00:00:[facility] Encounters Start End Encounter Admission Attending Care Care Encounter Source Date/Time Date/Time Type Type Clinicians Facility Department ID 2020-10-15 Inpatient TRENA Wharton, HCATO ADMI [id number] [facility] 12:00:00 Asad [id number] [facility] 2021-01-30 2021-01-30 Jose DEDRICK Jenkins [id number] Univers 00:00:00 00:00:00 (Out) Preeti T DINORAH [id number] it y of [facility] [id number] [place] [phone] [address] 2021-01-28 2021-01-28 Laboratory Only, Ang Db Test [facility] [id number] Univers 17:18:59 17:33:59 Only Toña Buchanan [facility] [id number] ity [facility] [id number] [place] Bo?Blea [phone] [address] Medical Office Building 2021-01-28 2021-01-28 Outpatient [facility] [id number] Univers 17:30:00 17:30:00 [id number] [facility] 2021-01-28 2021-01-28 Outpatient Karina BUCHANAN [facility] [id number] Univers 17:30:00 17:30:00 TOÑA thompson f [facility] 2020-10-08 2020-10-08 Outpatient Dio, HCACL LABO [id number] [facility] 18:37:00 18:37:00 Asad [id number] [facility] 2020-10-08 2020-10-08 Outpatient Stocks, HCAWU REFE [id number] [facility] 18:12:00 18:12:00 Asad [id number] [facility] 2020-10-08 2020-10-08 Outpatient TRENA Wharton, HCATO RADI [id number] [facility] 12:54:00 12:54:00 Asad [id number] [facility] 2020-07-26 2020-07-26 Outpatient Karina PEARL [facility] [id number] Univers 10:20:00 10:20:00 FLAVIO ity [facility] 2020-07-05 2020-07-05 Outpatient Karina PEARL [facility] [id number] Univers 09:30:00 09:30:00 FLAVIO [id number] [facility] 2020-07-05 2020-07-05 Outpatient Karina PEARL [facility] [id number] Univers 09:30:00 09:30:00 FLAVIO [facility] 2020-04-28 2020-04-28 Urgent Provider, [facility] [id number] 10:43:01 11:03:01 [facility] [id number] Care [place] [id number] Professio [phone] 2020-04-28 2020-04-28 Urgent Provider, [facility] [id number] Univers 10:43:01 11:03:01 Care [facility] [id number] [place] [id number] [place] Professio [phone] Ok dical [address] Office [address] 2020-04-28 2020-04-28 Outpatient Karina LIU [facility] [id number] Univers 10:40:00 10:40:00 [facility] Results Test Description Test Time Test Comments Results Result Comments Source GLUBED 2020-10-16 11:56:00 Test Item Value Reference Range Interpretation Comme nts GLUBED (test code = GLUBED) 232 mg/dL 60-125 H [id number] 09:35:00 Test Item Value Reference Range Interpretation Comments GLUBED (test code = GLUBED) 145 mg/dL 60-125 H BASIC METABOLIC [id number] 06:42:00 Test Item Value Reference Range Interpretation Comments SODIUM (test code = 135 mmol/L 136-145 L NA) POTASSIUM (test code = 4.4 mmol/L 3.5-5.1 N K) CHLORIDE (test code = 100.0 mmol/L 98-107 N CL) CARBON DIOXIDE (test 25.8 mmol/L 21-32 N code = CO2) GLUCOSE (test code = 246 mg/dL 70-110 H GLU) BLOOD UREA NITROGEN 31 mg/dL 7-18 H (test code = BUN) GLOMERULAR FILTRATION 41.1 >60 Unit o f measure: RATE (test code = GFR) mL/mi n/1.73 [id number] Range:Healthy Adults >90 mL/min/1.73 m2 For Chronic Kidney Disease: St age II Mild Decrease in GFR 60-90 St age III Moderate Decrease in GFR 30-59 Stage IV Severe Decre ase in GFR 15- 29 Stage V Kidney Failure <15 CREATININE (test code 1.27 mg/dL 0.55-1.30 N = CREAT) CALCIUM (test code = 8.3 mg/dL 8.2-10.1 N CA) SPECIMEN COMMENT: POD #[id number] 06:35:00 Test Item Value Reference Range Interpretation Comments GLUBED (test code = GLUBED) 218 mg/dL 60-125 H HGB [id number] 05:58:00 Test Item Value Reference Range Interpretation Comments HEMOGLOBIN (test code = HGB) 11.7 g/dL 12-16 L HEMATOCRIT (test code = HCT) 34.7 % 37-47 L SPECIMEN COMMENT: POD #[id number] 19:37:00 Test Item Value Reference Range Interpretation Comments GLUBED (test code = GLUBED) 363 mg/dL 60-125 H [id number] 16:38:00 Test Item Value Reference Range Interpretation Comments GLUBED (test code = GLUBED) 334 mg/dL 60-125 H Novel Coronavirus 2018 [id number] 11:09:00 Test Item Value Reference Range Interpretation Comments Novel Coronavirus Negative Negative Positive r esults are 2019 Inhouse (test indicativ e of the presence code = COVNONPUI) ofSARS-CoV -2 RNA, clinical correlation wit h patient historyand othe r diagnostic info rmation is necessary to determinepatien t infection status. Positiv e results do not rule out bacterial infection or co -infection with other viru ses. Negative result s do not preclude SARS-C oV-2 infection andsh ould not be used as the abilio e basis for patient managementdecis ions. Negative result s must be combined with otherclinical observations, p atient history, and epidemiological information . Detection of SARS-CoV-2 RNA may be affe cted bysample collec tion methods, storag e conditions, and /or stageof infection. Amanda l RNA mutations, vacc inations, antiviraltherap eutics, antibiotics, chemotherapeuti c orimmunosuppres jose drugs have not been e valuated for effectson d etection. Results are for the identification of SARS-CoV-2 RNA usingthe [employer] M2000 Sy stem under the FDA Emergen cy UseAuthorizatio n. The testing is perf ormed by personneltraine d in the procedures for the [employer] M2000 molecular diagnostic SARS-CoV-2 assa y in vitro. Novel Coronavirus 2018 [id number] 11:09:00 Test Item Value Reference Range Interpretation Comments Novel Coronavirus Negative Negative Positive r esults are 2019 Inhouse (test indicativ e of the presence code = COVNONPUI) ofSARS-CoV -2 RNA, clinical correlation wit h patient historyand othe r diagnostic info rmation is necessary to determinepatien t infection status. Positiv e results do not rule out bacterial infection or co -infection with other viru ses. Negative result s do not preclude SARS-C oV-2 infection andsh ould not be used as the abilio e basis for patient managementdecis ions. Negative result s must be combined with otherclinical observations, p atient history, and epidemiological information . Detection of SARS-CoV-2 RNA may be affe cted bysample collec tion methods, storag e conditions, and /or stageof infection. Amanda l RNA mutations, vacc inations, antiviraltherap eutics, antibiotics, chemotherapeuti c orimmunosuppres jose drugs have not been e valuated for effectson d etection. Results are for the identification of SARS-CoV-2 RNA usingthe [employer] M2000 Sy stem under the FDA Emergen cy UseAuthorizatio n. The testing is perf ormed by personneltraine d in the procedures for the [employer] M2000 molecular diagnostic SARS-CoV-2 assa y in vitro. VITAMIN D 25-HYDROXY (TOTAL)2020-10-09 07:16:00 Test Item Value Reference Range Interpretation Comments VITAMIN D 51.2 ng/mL 30.0-100.0 Vitamin D defic iency has 25-HYDROXY (TOTAL) been defi quynh by the (test code = [place] [facility] ic[facility] and VITD25) an Endocrine So ciety practice guidel ine as alevel of serum 25-OH vitamin D less than 20 ng/mL (1,2).The Endocrine Society went on to further define vitamin Dinsufficiency as a level between 21 and 29 ng/mL (2).1. IOM (Ins titute of Medicine). 2010 . Dietary reference int akes for calcium and D. [place]: The [employer] .2. Kristin MF, Myra NC, [place] i SPENCER, et al. Evaluatio n, treatment, and prevention of vitamin D deficiency: an Endocrine Society clinica l practice guideline. JENNIE EM. 2010; 96(7):1911-30.P erformed At: [facility] [id number] [place], [place] [id number] Kike Rodrigues MD Ph:[phone] GLYCOSYLATED HEMOGLOBIN (HA1C)2020-10-08 20:01:00 Test Item Value Reference Range Interpretation Comments GLYCOSYLATED 6.9 % 4.8-5.9 H Any condition t hat shortens HEMOGLOBIN (HA1C) erythocyte survival or (test code = GLYHGB) decreas esmean erythrocyte age (e.g., elsy very from acute blood los s,hemolytic anemai) will fa lsely lower HGBA1c resultsr egardless of the method used . HGBA1c results frompat ients with HbSS, HbCC and HbSc must be interpreted wit hcaution given the patho logical processes, incl uding anemia,increase d red cell turnover, trans fusion requirements, t hatadversely impact HGBA1c a s a marker of long-term glycemiccontrol . Alternative for ms of testing such as fructosaminesho uld be considered for these patients.Any co ndition that shortens erytho cyte survival or dec reasesmean erythrocyte age (e.g., recovery from a cute blood loss,hemolytic anemia) will falsely lower H GBA1c resultsregardle ss of the method used. H GBA1c results from violet duff HbSS, HbCC, and HbSc must be interpreted with cautiongiven th e pathological pr ocesses, including anemi a,increased red cell turnov er, transfusion req uirements, thatadversely i mpact HGBA1c as a marker of long-term glycemiccontrol . Alternative for ms of testing such as fructosaminesho uld be considered for these patients.DONE A T: [facility] [id number] [place], [place] [id number] GLYCOSYLATED HEMOGLOBIN (HA1C)2020-10-08 20:01:00 Test Item Value Reference Range Interpretation Comments GLYCOSYLATED 6.9 % 4.8-5.9 H Any condition t hat shortens HEMOGLOBIN (HA1C) erythocyte survival or (test code = GLYHGB) decreas esmean erythrocyte age (e.g., elsy very from acute blood los s,hemolytic anemia) will fa lsely lower HGBA1c resultsr egardless of the method used . HGBA1c results from violet duff HbSS, HbCC, and HbSc must be interpreted with cautiongiven th e pathological pr ocesses, including anemi a,increased red cell turnov er, transfusion req uirements, thatadversely i mpact HGBA1c as a marker of long-term glycemiccontrol . Alternative for ms of testing such as fructosaminesho uld be considered for these patients. PROTHROMBIN [id number] 18:49:00 Test Item Value Reference Range Interpretation Comments PROTHROMBIN TIME 10.7 secs 10.1-12.5 N PATIENT (test code = PTP) INTERNATIONAL NORMAL 0.94 <2.0 RECOMME NDED THERAPEUTIC RATIO (test code = RANGE FOR ORAL INR) ANTICOAGULANTTR EATMENT: CONDI TION INRProphylaxis of venous thrombos is in 2.0 - 3.0 high-risk medic al or surgical patientsTreatme nt of venous thrombos is 2.0 - 3.0Prevention o f embolism 2.0 - 3.0Prevention o f recurrent embol ism, or 3.0 - 4. 5 patients with mechanical pros thetic intravascular v beasley IS PATIENT ON ANTICOAGULANTS ? NHas Lab been notified if Patient is on Heparin Drip? NOTHROMBOPLASTIN TIME [id number] 18:49:00 Test Item Value Reference Range Interpretation Comments PTT ACTIVATED (test code = APTT) 29.9 secs 24.9-37.0 N IS PATIENT ON ANTICOAGULANTS ? MEas Lab been notified if Patient is on Heparin Drip? NOCOMPREHENSIVE METABOLIC [id number] 18:34:00 Test Item Value Reference Range Interpretation Comments SODIUM (test code = 142 mmol/L 136-145 N NA) POTASSIUM (test code = 3.8 mmol/L 3.5-5.1 N K) CHLORIDE (test code = 103.0 mmol/L 98-107 N CL) CARBON DIOXIDE (test 29.4 mmol/L 21-32 N code = CO2) GLUCOSE (test code = 140 mg/dL 70-110 H GLU) BLOOD UREA NITROGEN 20 mg/dL 7-18 H (test code = BUN) GLOMERULAR FILTRATION 54.8 >60 Unit o f measure: RATE (test code = GFR) mL/mi n/1.73 [id number] Range:Healthy Adults >90 mL/min/1.73 m2 For Chronic Kidney Disease: St age II Mild Decrease in GFR 60-90 St age III Moderate Decrease in GFR 30-59 Stage IV Severe Decre ase in GFR 15- 29 Stage V Kidney Failure <15 CREATININE (test code 0.99 mg/dL 0.55-1.30 N = CREAT) TOTAL PROTEIN (test 6.9 g/dL 6.4-8.2 N code = PROT) ALBUMIN (test code = 4.0 g/dL 3.4-5.0 N ALB) GLOBULIN (test code = 2.9 g/dL 2.2-4.2 N GLOB) ALBUMIN/GLOBULIN RATIO 1.4 0.7-2.0 N (test code = A/G) CALCIUM (test code = 8.7 mg/dL 8.2-10.1 N CA) BILIRUBIN TOTAL (test 0.90 mg/dL 0.2-1.00 N code = BILT) SGOT/AST (test code = 49.0 U/L 15-37 H AST) SGPT/ALT (test code = 84.0 U/L 12-78 H Please note new ALT) normal range. ALKALINE PHOSPHATASE 68 U/L 46-116 N TOTAL (test code = ALKP) CBC W/AUTO [id number] 18:10:00 Test Item Value Reference Range Interpretation Comments WHITE BLOOD CELL (test code = WBC) 5.6 K/mm3 5.8-11.0 L RED BLOOD CELL (test code = RBC) 4.69 M/mm3 4.2-5.4 N HEMOGLOBIN (test code = HGB) 14.1 g/dL 12-16 N HEMATOCRIT (test code = HCT) 42.1 % 37-47 N MEAN CELL VOLUME (test code = MCV) 90 fL 80-98 N MEAN CELL HGB (test code = MCH) 30.1 pg 27-34 N MEAN CELL HGB CONCENTRATION (test 33.5 g/dL 30.8-34.1 N code = MCHC) RED CELL DISTRIBUTION WIDTH (test 14.3 % 11-16 N code = RDW) PLT (test code = PLT) 120 K/mm3 130-400 L MEAN PLATELET VOLUME (test code = 11.9 fL 8.9-12.1 N MPV) NEUTROPHIL % (test code = NT%) 57.1 % 45-70 N LYMPHOCYTE % (test code = LY%) 30.6 % 20-40 N MONOCYTE % (test code = MO%) 7.7 % 3-10 N EOSINOPHIL % (test code = EO%) 3.1 % 1-5 N BASOPHIL % (test code = BA%) 1.3 % 0.0-1.1 H NEUTROPHIL # (test code = NT#) 3.18 K/mm3 2.00-7.50 N LYMPHOCYTE # (test code = LY#) 1.70 K/mm3 1.50-4.00 N MONOCYTE # (test code = MO#) 0.43 K/mm3 0.2-0.8 N EOSINOPHIL # (test code = EO#) 0.17 K/mm3 0.04-0.4 N BASOPHIL # (test code = BA#) 0.07 K/mm3 0.02-0.10 N MANUAL DIFF REQUIRED (test code = NO MANUAL DIFF MDIFF) NUCLEATED RED BLOOD CELL (test 0 % 0-0 N code = NRBC) - [facility] NDL PLACEMENT (Bxg/Asp)2020-10-08 15:20:00 [facility] : 1945 Sex: F Patient Name: MIRZA BAHENA Unit No: [id number] EXAMS: CPT CODE: [id number] USG NDL PLACEMENT (Bxg/Asp) 20003 INDICATION: Left knee pain. PROCEDURE: Ultrasound guided cryoanalgesia (Iovera) of the left anterior femoral cutaneous nerve, medial femoral cutaneous nerve, and the superior and inferior branches of the infrapatellar branch of the saphenous nerve. BUSINESS EXECUTIVE: Dr. Esquivel. MEDICATIONS: 1 % Lidocaine local anesthesia CONTRAST: None. COMPLICATION: None immediately evident. DESCRIPTION: After the procedure, including indication and potential complications had been discussed with the patient and questions answered, written informed consent was obtained. The patient was then taken to the ultrasound suite and placed on the table in supineposition with their treatment leg fully extended. The skin of the left knee was evaluated sonographically. The skin over the anterior femoral cutaneous nerve, medial femoral cutaneous nerve, and the superior and inferior branches of the infrapatellar branch of the saphenous nerve was marked. The skin was then prepped and draped sterilely. A time out was performed. After achieving 1% Lidocaine local anesthesia, the 55mm Smart Tip Iovera cryoanalgesia probe was inserted into the skin at the sites where the nerves had been identified by ultrasound, and the treatment was initiated. The duration of each treatment cycle was 1 minute and 10 seconds. The patent's skin was cleaned and the wound was covered with a band-aid. The patient was instructed to stand and mobilize the knee joint. No immediate complication were observed. The patient tolerated the procedure well and was subsequently discharged in stable condition with instructions for follow up. Preprocedural pain level: 2/ 10 Postprocedural pain level: 0/ 10 IMPRESSION:Cryoanalgesia of the left anterior femoral cutaneous nerve, medial femoral cutaneous nerve, and the superior and inferior branches of the infrapatellar branch of the saphenous nerve as above. at 1520 Reported and signed by: Filiberto Esquivel MD [facility] NAME: POWER,MIRZA [address] PHYS: Asad Arnold MD : 1945 AGE: 75 SEX: F [place] [address] LOC: Y.RAD PHONE #: [phone] EXAM DATE: 10/08/2020 STATUS: REG CLI FAX #: [phone] RAD #: D/C DT PAGE 1 Signed Report (CONTINUED) Patient Name: MIRZA BAHENA [facility] Unit No: [id number] EXAMS: CPT CODE: [id number] USG NDL PLACEMENT (Bxg/Asp) 19373 <Continued> CC: Asad Wharton MD Technologist: BENNETT SANTOS RDMS, RVT Transcribed D/ (1520) t.[email or web address].L [facility] NAME: MIRZA BAHENA [address] PHYS: Asad Arnold MD : 1945 AGE: 75 SEX: F [place] [address] LOC: Y.RAD PHONE #: [phone] EXAM DATE: 10/08/2020 STATUS: REG CLI FAX #: [phone] RAD #: D/C DT PAGE 2 Signed Report Patient Name: MIRZA BAHENA [facility] Unit No: [id number] EXAMS: CPT CODE: [id number] USG NDL PLACEMENT (Bxg/Asp) 80204 <Continued> Orig Print D/T: S: 10/08/2020 (1523) [facility] [address] PHYS: Asad Arnold MD : 1945 AGE: 75 SEX: F [place] [address] LOC: Y.RAD PHONE #: [phone] EXAM DATE: 10/08/2020 STATUS: REG CLI FAX #: [phone] RAD #: D/C DT PAGE 3 Signed Report
--- NOTE | 2021-08-18 18:59 | ER ---
Nurse's Notes [facility] Name: Chrissy Johnson Age: 75 yrs Sex: Female : 1945 Arrival Date: 08/18/2021 Time: 16:31 Bed 12 Private MD: Hero Baxter C Diagnosis: Sprain of ankle-right Presentation: 08/18 16:59 Chief complaint: Patient states: "I stepped on a mat and it slid and I fell." Pt c/o ab2 right ankle pain and swelling. Pt denies LOC. Pt states she took a tramadol and codeine [employer]. Coronavirus screen: Vaccine status: Patient reports being unvaccinated. Client denies travel out of the [place] in the last 14 days. At this time, the client does not indicate any symptoms associated with coronavirus-19. Ebola Screen: Patient negative for fever greater than or equal to 101.5 degrees Fahrenheit, and additional compatible Ebola Virus Disease symptoms Patient denies exposure to infectious person. Patient denies travel to an Ebola-affected area in the 21 days before illness onset. No symptoms or risks identified at this time. Initial Sepsis Screen: Does the patient meet any 2 criteria? No. Patient's initial sepsis screen is negative. Does the patient have a suspected source of infection? No. Patient's initial sepsis screen is negative. Risk Assessment: Do you want to hurt yourself or someone else? Patient reports no desire to harm self or others. 16:59 Method Of Arrival: Ambulatory ab2 16:59 Acuity: TAMI 4 ab2 17:02 Onset of symptoms is unknown. ab2 Triage Assessment: 17:03 General: Appears in no apparent distress. uncomfortable, Behavior is calm, cooperative, ab2 appropriate for age. Pain: Complains of pain in right ankle and lateral aspect of right foot. Cardiovascular: No deficits noted. Denies chest pain, shortness of breath. Respiratory: Airway is patent Respiratory effort is even, unlabored, Respiratory pattern is regular, symmetrical. Historical: - Allergies: 17:02 Amoxicillin; ab2 17:02 Atarax; ab2 17:02 Darvon; ab2 17:02 novahistin; ab2 - PMHx: 17:02 Diabetes - NIDDM; Hyperlipidemia; Hypertension; melanoma- removed x2; mortons neuroma; ab2 - PSHx: 17:02 Appendectomy; Tonsillectomy; ab2 - Immunization history:: Adult Immunizations up to date. - Social history:: Smoking status: Patient denies any tobacco usage or history of. Screenin:17 Abuse screen: Denies threats or abuse. Denies injuries from another. Nutritional ab2 screening: No deficits noted. Tuberculosis screening: No symptoms or risk factors identified. Fall Risk None identified. Assessment: 19:17 General: Appears in no apparent distress. uncomfortable, Behavior is calm, cooperative, ab2 appropriate for age. Pain: Complains of pain in lateral aspect of right foot and right ankle. Neuro: Level of Consciousness is awake, alert, obeys commands, Oriented to person, place, time, situation, Appropriate for age. Cardiovascular: No deficits noted. Respiratory: No deficits noted. Airway is patent Respiratory effort is even, unlabored, Respiratory pattern is regular, symmetrical. GI: No deficits noted. : No deficits noted. Derm: No deficits noted. Vital Signs: 16:59 BP 148 / 62; Pulse 70; Resp 17; Temp 98.8; Pulse Ox 95% on R/A; Weight 86.18 kg; Height ab2 5 ft. 4 in. (162.56 cm); Pain 3/10; 19:18 BP 134 / 71; Pulse 67; Resp 17; Pulse Ox 98% ; ab2 16:59 Body Mass Index 32.61 (86.18 kg, 162.56 cm) ab2 ED Course: 16:31 Patient arrived in ED. mr 16:31 Hero Baxter MD is Private Physician. mr 17:02 Triage completed. ab2 17:03 Arm band placed on right wrist. ab2 17:09 Jeyson Heard PA is PHCP. cp 17:09 Jeyson Bonilla MD is Attending Physician. cp 18:41 XRAY Ankle RIGHT 3 view In Process Unspecified. EDMS 18:58 Obi White MD is Referral Physician. cp 19:17 No provider procedures requiring assistance completed. Patient did not have IV access ab2 during this emergency room visit. 19:18 Patient has correct armband on for positive identification. Bed in low position. Call ab2 light in reach. Side rails up X2. Administered Medications: No medications were administered Outcome: 18:59 Discharge ordered by . cp 19:18 Discharged to home ambulatory. ab2 19:18 Condition: good 19:18 Discharge instructions given to patient, family, Instructed on discharge instructions, follow up and referral plans. medication usage, Demonstrated understanding of instructions, follow-up care, medications, Prescriptions given X 1. 19:18 Patient left the ED. ab2 Signatures: Dispatcher [employer] [facility] Kimmy Mejia mr Jeyson Heard PA PA cp Bleininger, Alexis ab2
--- NOTE | 2021-08-18 19:00 | EDPHYS ---
Physician Documentation [facility] Name: Chrissy Johnson Age: 75 yrs Sex: Female : 1945 Arrival Date: 08/18/2021 Time: 16:31 Bed 12 Private MD: Hero Baxter C ED Physician Jeyson Bonilla HPI: 08/18 17:20 This 75 yrs old Female presents to ER via Ambulatory with complaints of Fall Injury. cp 17:20 The patient presents with an injury, pain, that is acute, swelling, tenderness. The cp complaints affect the right ankle. Onset: The symptoms/episode began/occurred today. Context: resulted from slip and fall, The patient can fully bear weight on the affected extremity. the patient is able to ambulate, with moderate difficulty. 17:20 Associated signs and symptoms: The patient has no apparent associated signs or cp symptoms. Patient presents to ED with c/o right ankle injury after slip and fall. Patient wearing walking boot from home. Historical: - Allergies: 17:02 Amoxicillin; ab2 17:02 Atarax; ab2 17:02 Darvon; ab2 17:02 novahistin; ab2 - PMHx: 17:02 Diabetes - NIDDM; Hyperlipidemia; Hypertension; melanoma- removed x2; mortons neuroma; ab2 - PSHx: 17:02 Appendectomy; Tonsillectomy; ab2 - Immunization history:: Adult Immunizations up to date. - Social history:: Smoking status: Patient denies any tobacco usage or history of. ROS: 17:45 MS/extremity: Positive for pain, swelling, tenderness, of the right ankle, Negative for cp paresthesias. 17:45 Eyes: Negative for injury, pain, redness, and discharge. cp 17:45 Constitutional: Negative for body aches, chills, fever, poor PO intake. 17:45 Neck: Negative for pain with movement, pain at rest, stiffness. 17:45 Respiratory: Negative for cough, shortness of breath, wheezing. 17:45 Abdomen/GI: Negative for abdominal pain, nausea, vomiting, and diarrhea. 17:45 Back: Negative for pain at rest, pain with movement. 17:45 Neuro: Negative for altered mental status, headache, numbness, weakness. 17:45 All other systems are negative. Exam: 17:50 Constitutional: The patient appears in no acute distress, alert, awake, non-toxic, well cp developed, well nourished. 17:50 Head/Face: Normocephalic, atraumatic. cp 17:50 Neck: ROM/movement: is normal, is supple, without pain, no range of motions limitations. 17:50 Chest/axilla: Inspection: normal. 17:50 Cardiovascular: Rate: normal, Pulses: Pulses are 2+ in right dorsalis pedis artery. Edema: is not appreciated. 17:50 Respiratory: the patient does not display signs of respiratory distress, Respirations: normal, no use of accessory muscles, no retractions, labored breathing, is not present. 17:50 Abdomen/GI: Exam negative for discomfort, distension, guarding, Inspection: abdomen appears normal. 17:50 Back: pain, is absent, ROM is normal. 17:50 Musculoskeletal/extremity: Extremities: grossly normal except: noted in the right ankle: lateral malleolus swelling and tenderness, There is no evidence of decreased ROM, deformity, ROM: limited passive range of motion due to pain, in the right ankle, the right foot Sensation intact. Achilles tendon palpated and intact and no pain to palpation noted at base of right fifth metatarsal and/or proximal fibula. Vital Signs: 16:59 BP 148 / 62; Pulse 70; Resp 17; Temp 98.8; Pulse Ox 95% on R/A; Weight 86.18 kg; Height ab2 5 ft. 4 in. (162.56 cm); Pain 3/10; 19:18 BP 134 / 71; Pulse 67; Resp 17; Pulse Ox 98% ; ab2 16:59 Body Mass Index 32.61 (86.18 kg, 162.56 cm) ab2 MDM: 17:12 Patient medically screened. cp 18:00 Differential diagnosis: fracture, sprain, Achilles tendon rupture, foot fracture. cp 18:03 Test interpretation: by ED physician or midlevel provider: xrays of right ankle cp negative for acute fracture. 18:59 Data reviewed: vital signs, nurses notes, radiologic studies, plain films. cp 18:59 Counseling: I had a detailed discussion with the patient and/or guardian regarding: the cp historical points, exam findings, and any diagnostic results supporting the discharge/admit diagnosis, radiology results, to return to the emergency department if symptoms worsen or persist or if there are any questions or concerns that arise at home. ED course: VSS. Recommend continued use of walking boot for support and use of crutches which patient reportedly has a pair at home to use. Will discharge to home for continued monitoring and f/u with pcp next 1 week. 08/18 17:12 Order name: XRAY Ankle RIGHT 3 view; Complete Time: 19:09 cp Administered Medications: No medications were administered Disposition Summary: 08/18/21 18:59 Discharge Ordered Location: Home cp Problem: new cp Symptoms: have improved cp Condition: Stable cp Diagnosis - Sprain of ankle - right cp Followup: cp - With: Obi White MD - When: 1 week - Reason: Recheck today's complaints Discharge Instructions: - Discharge Summary Sheet cp - Ankle Sprain cp Forms: - Medication Reconciliation Form cp - Thank You Letter cp - Antibiotic Education cp - Prescription Opioid Use cp Prescriptions: - Naprosyn 500 mg Oral Tablet - take 1 tablet by ORAL route 2 times per day take with food; 20 tablet; Refills: cp 0, Product Selection Permitted Addendum: 08/21/2021 07:16 Co-signature as Attending Physician, Jeyson Bonilla MD I agree with the assessment and c knapp plan of care. Signatures: Dispatcher [employer] EDJeyson Kendall MD MD cha Page, Corey PA PA Km Campbell ab2
--- NOTE | 2021-08-18 19:08 | RAD REPORT ---
EXAM DESCRIPTION: RAD - Ankle Right 3 View - 08/18/2021 6:39 pm CLINICAL HISTORY: Right ankle pain status post fall FINDINGS: No acute fracture or dislocation is seen. Bony density with a sclerotic border adjacent to the medial malleolus likely chronic. Large calcaneal spurs Soft tissue swelling.
[2021-08-18 19:33] VITALS: TEMP 98.8
[2021-08-18 19:34] VITALS: BP 134/71; O2SAT 98
== END 2021-08-18 19:18 | disposition home or self-care (01) ==
LOC: ER 16:28
DX: S93.401A Sprain of unspecified ligament of right ankle, initial encounter (principal); W01.0XXA Fall on same level from slipping, tripping and stumbling without subsequent striking against object, initial encounter; Y93.89 Activity, other specified; Y92.9 Unspecified place or not applicable; Z88.8 Allergy status to other drugs, medicaments and biological substances; E11.9 Type 2 diabetes mellitus without complications; E78.5 Hyperlipidemia, unspecified; I10 Essential (primary) hypertension
CPT/HCPCS: 99283